=== PATIENT | male | born 1985 | race African-American/Black ===

== ENCOUNTER 2018-05-28 08:28 | Emergency (ER) | payer OTHER ==
[~2018-05-28] VITALS: Ht 198.1 cm; Wt 93.0 kg
[2018-05-28] MEDS ORDERED: Motrin,Rufen800 MG PO (09:14)
[2018-05-28] MEDS ORDERED: DOXYCYCLINE100 M3 PO (09:14)
== END 2018-05-28 09:35 | disposition home or self-care (01) ==
LOC: ED 08:28
DX: L73.2 Hidradenitis suppurativa (principal)